=== PATIENT | male | born 1935 | race Two or more races ===

== ENCOUNTER → 2018-12-02 | Outpatient (CLI) | payer OTHER ==
[~2018-12-02] MED LIST: COZAAR50 MG
== END | disposition home or self-care (01) ==
LOC: MRI 14:11
DX: M25.112 Fistula, left shoulder (principal)
CPT/HCPCS: 73218

== ENCOUNTER 2019-05-23 13:08 | Outpatient (CLI) | payer OTHER | END 2019-05-23 13:14 | disposition home or self-care (01) | LOC: SONOGRAMA 13:08 | DX: E03.8 Other specified hypothyroidism (principal); E04.2 Nontoxic multinodular goiter ==

== ENCOUNTER 2019-07-11 13:37 | Outpatient (CLI) | payer OTHER | END 2019-07-11 13:42 | disposition home or self-care (01) | LOC: RAD 13:37 | DX: M75.112 Incomplete rotator cuff tear or rupture of left shoulder, not specified as traumatic (principal) ==

== ENCOUNTER 2023-02-03 13:13 | Outpatient (CLI) | payer OTHER | END 2023-02-03 13:20 | disposition home or self-care (01) | LOC: RAD 13:13 | PROVIDERS: ATTEND Internal Medicine Cardiovascular Disease | DX: I11.9 Hypertensive heart disease without heart failure (principal); E78.2 Mixed hyperlipidemia ==

== ENCOUNTER → 2023-02-05 09:51 | Outpatient (CLI) | payer OTHER | END | disposition home or self-care (01) | LOC: NUCLEAR 09:51 | PROVIDERS: ATTEND Internal Medicine Cardiovascular Disease | DX: I11.9 Hypertensive heart disease without heart failure (principal); R01.1 Cardiac murmur, unspecified; E78.2 Mixed hyperlipidemia ==